=== PATIENT | female | born 1995 | race Caucasian/White ===

== ENCOUNTER 2021-01-25 19:04 | Emergency (ER) | payer OTHER ==
[~2021-01-25 19:04] MED LIST: Birth Control; COLACE 100MG C100 MG PO; ESCITALOPRAM OX20 MG PO; HABITROL 21 MG P1 EA TOP; LEVAQUIN750 MG PO; NEURONTIN 400400 MG PO; PHENERGAN 25 MG25 M1 PO; PREDNISONE20 MG PO
[2021-01-25] MEDS ORDERED: LEVOFLOXACIN500 MG PO (20:06)
[2021-01-25] MEDS ORDERED: CEPHALEXIN500 MG PO (20:06)
== END 2021-01-25 20:21 | disposition home or self-care (01) ==
LOC: ER1 19:04
DX: S91.332A Puncture wound without foreign body, left foot, initial encounter (principal); F17.210 Nicotine dependence, cigarettes, uncomplicated; Z79.01 Long term (current) use of anticoagulants; L03.115 Cellulitis of right lower limb; W45.0XXA Nail entering through skin, initial encounter; Z23 Encounter for immunization
CPT/HCPCS: 73630; 90471; 90715; 99283

== ENCOUNTER 2021-11-08 14:54 | Emergency (ER) | payer OTHER ==
[~2021-11-08 14:54] MED LIST changes: +CEPHALEXIN500 MG PO; +LEVOFLOXACIN500 MG PO
[2021-11-08 15:41] LABS: HEMOGLOBIN 13.5 gm/dl (12.3-15.3); RED BLOOD COUNT 4.42 M/UL (4.00-5.10); WHITE BLOOD COUNT 7.3 K/UL (4.5-11.0)
[2021-11-08 16:05] LABS: BUN/CREATININE RATIO 19 (0-10)
== END 2021-11-08 18:40 | disposition home or self-care (01) ==
LOC: ER1 14:54
DX: R07.89 Other chest pain (principal); F17.210 Nicotine dependence, cigarettes, uncomplicated; J45.909 Unspecified asthma, uncomplicated; Z20.822 Contact with and (suspected) exposure to COVID-19
CPT/HCPCS: 0240U; 71045; 80053; 82550; 82553; 84484; 84703; 85025; 85379; 93005; 99285